=== PATIENT | female | born 1995 | race Two or more races ===

== ENCOUNTER 2024-11-24 21:45 | Emergency (ER) | payer OTHER ==
[~2024-11-24] VITALS: Ht 157.5 cm; Wt 66.7 kg
[2024-11-24] MEDS ORDERED: ZOFRAN8 MG (22:30)
[2024-11-24] MEDS ORDERED: PEPCID AC20 MG (22:30)
[2024-11-24] MEDS ORDERED: PRIMACARE SOFT1 EACH (22:31)
[2024-11-25] MEDS ORDERED: FAMOTIDINE/PF 20 MG in 0.9 % SODIUM CHLORIDE 8 ML IV PUSH STA (00:43)
[2024-11-25] MEDS ORDERED: METOCLOPRAMIDE HCL 10 MG in DEXTROSE 5 % IN WATER 50 ML IV ONE (00:45)
[2024-11-25] MEDS ORDERED: RINGERS SOLUTION,LACTATED 1,000 ML IV ONE (00:45)
[2024-11-25 02:03] LABS: ALT/SGPT 40.0 U/L (12-78); AST/SGOT 19.0 U/L (15-37); BILIRUBIN TOTAL 1.29 mg/dL (0.3-1.2); BUN CREA RATIO 8.0 (7.0-25.0); CREATININE SERUM 0.65 mg/dL (0.55-1.02); GFR 108.53; GLOBULINA 3.5 G/DL (2.4-3.5); GLUCOSE FASTING 80.0 mg/dL (65-100); OSMOLALITY SERUM 276.0 MOSM/KG (275-295)
[2024-11-25 02:06] LABS: BASO % 0.5 % (0.1-1.2); EOS # 0.02 (0.04-0.54); EOS % 0.2 % (0.7-7.0); LYMPH # 1.55 (1.18-3.74); LYMPH % 14.2 % (19.3-53.1); MEAN PLATELET VOLUME 11.30 fl (9.4-12.4); MONO # 0.73 (0.24-0.82); MONO % 6.7 % (4.7-12.5); NEUT # 8.52 (1.56-6.13); NEUT % 78.1 % (34.0-71.1); RED CELL DISTRIBUTION WIDTH 12.7 % (11.6-14.4)
[2024-11-25] MEDS ORDERED: ONDANSETRON ODT8 MG PO (02:43)
== END 2024-11-25 02:58 | disposition home or self-care (01) ==
LOC: ER 21:50
PROVIDERS: General Practice
DX: O21.0 Mild hyperemesis gravidarum (principal); Z3A.10 10 weeks gestation of pregnancy